=== PATIENT | male | born 2000 | race Caucasian/White ===

== ENCOUNTER 2022-10-05 19:57 | Emergency (ER) | payer SELFPAY ==
[~2022-10-05] VITALS: Ht 165.1 cm; Wt 65.0 kg
[2022-10-05 21:16] VITALS: BP 119/87
== END 2022-10-06 01:41 | disposition left against medical advice (07) ==
LOC: ER 19:58
DX: F79 Unspecified intellectual disabilities (principal); Z53.21 Procedure and treatment not carried out due to patient leaving prior to being seen by health care provider
CPT/HCPCS: 99281

== ENCOUNTER 2022-10-22 18:27 | Emergency (ER) | payer MEDICAID ==
[~2022-10-22] VITALS: Ht 165.1 cm; Wt 65.9 kg
[2022-10-22 18:32] VITALS: BP 116/76
[2022-10-22] MEDS ORDERED: ibuprofen tablet 400 MG TABLET PO STA (19:55)
[2022-10-22] MEDS ORDERED: IBUP-1986 PO (20:20)
== END 2022-10-22 20:31 | disposition home or self-care (01) ==
LOC: ER 18:28
DX: M79.631 Pain in right forearm (principal); W19.XXXA Unspecified fall, initial encounter; Y93.89 Activity, other specified; Y92.89 Other specified places as the place of occurrence of the external cause; Y99.8 Other external cause status
CPT/HCPCS: 73080; 73090; 99284; A6449

== ENCOUNTER 2022-11-05 05:00 | Emergency (ER) | payer MEDICAID ==
[~2022-11-05] VITALS: Ht 165.1 cm; Wt 68.2 kg
[~2022-11-05 05:00] MED LIST: IBUP-1986 PO
[2022-11-05 06:04] VITALS: BP 123/70
== END 2022-11-05 06:08 | disposition home or self-care (01) ==
LOC: ER 05:00
DX: F12.929 Cannabis use, unspecified with intoxication, unspecified (principal); Z79.899 Other long term (current) drug therapy
CPT/HCPCS: 93005; 99283